=== PATIENT | male | born 1950 | race African-American/Black ===

== ENCOUNTER 2018-09-30 13:58 | Outpatient (CLI) | payer OTHER ==
[2018-09-30 15:25] LABS: Blood Urea Nitrogen 11 mg/dL (9-20)
--- NOTE | 2018-09-30 18:34 | Cat Scan Report ---
PROCEDURE: CT abdomen and pelvis with contrast. TECHNIQUE: Computerized axial tomography of the abdomen and pelvis was performed after the IV inject ion of iodinated nonionic contrast. CT DOSE LENGTH PRODUCT: 2413.57 mGycm HISTORY: Right lower quadrant abdominal pain. COMPARISONS: None. FINDINGS: The lung bases are clear. There are no pleural effusions. The heart size is normal. The liver, pancre as and spleen appear normal. The gallbladder is present. There is no biliary dilatation. The adrenal glands are not enlarged. Both kidneys appear normal in size and configuration. The abdominal aorta bee s a normal caliber. There is no retroperitoneal adenopathy. The unopacified gastrointestinal tract is unremarkable. A normal appendix is visible. There is a small umbilical hernia containing fat. The bl adder, seminal vesicles and prostate are unremarkable. There is a moderate sized left inguinal canal hernia containing fat. The regional skeleton appears intact. IMPRESSION: Small umbilical hernia and moderate sized left inguinal canal hernia, both containing fa t. No evidence of acute disease in the abdomen or pelvis. This document is electronically signed by Rohan Mirza MD., September 30 2018 06:32:24 PM ET
== END 2018-09-30 13:59 | disposition home or self-care (01) ==
LOC: CT 13:58
PROVIDERS: ATTEND Internal Medicine Gastroenterology
DX: K40.90 Unilateral inguinal hernia, without obstruction or gangrene, not specified as recurrent (principal); K42.9 Umbilical hernia without obstruction or gangrene
CPT/HCPCS: 36415; 74177; 82565; 84520; Q9967

== ENCOUNTER 2021-04-23 05:58 | Day surgery (SDC) | payer OTHER ==
[2021-04-17 10:09] LABS: Hemoglobin 14.6 gm/dl (11.8-15.2); Mean Corpuscular HGB Conc 33 % (32-34); Mean Corpuscular Volume 90 fl (84-94); Platelet Count 239 K/mm3 (140-440); Red Blood Count 4.89 M/mm3 (3.65-5.03); Red Cell Distribution Width 13.7 % (13.2-15.2)
[2021-04-17 10:21] LABS: BUN/Creatinine Ratio 14; Blood Urea Nitrogen 14 mg/dL (9-20); Calcium 9.2 mg/dL (8.4-10.2); Hemolysis Index 22
[2021-04-23] MEDS ORDERED: GABAPENTIN 300 MG CAP PO NR (06:00)
[2021-04-23] MEDS ORDERED: LACTATED RINGERS 1,000 ML IV SCH (06:00)
[2021-04-23] MEDS ORDERED: ACETAMINOPHEN 500 MG TAB PO SCH (06:00)
[2021-04-23] MEDS ORDERED: GABAPENTIN 100 MG CAP PO NR (06:30)
[2021-04-23] MEDS ORDERED: ceFAZolin/STERILE WATER 2 GM/20 ML SYRINGE IV NR (07:00)
[2021-04-23] MEDS ORDERED: BUPIVACAINE/PF (0.5%) 5 MG/1 ML 30 ML VIAL INFILTRATI ONE ×2 (07:08→08:48)
[2021-04-23] MEDS ORDERED: LIDOCAINE (1%) 10 MG/1 ML VIAL 20 ML MDV ONE (07:08)
[2021-04-23] MEDS ORDERED: LIDOCAINE PF 100 MG/5 ML (CARDIAC SYRINGE) IV ONE (07:19)
[2021-04-23] MEDS ORDERED: dexAMETHasone 20 MG/5 ML VIAL ONE (07:19)
[2021-04-23] MEDS ORDERED: fentaNYL 100 MCG/2 ML INJ ONE (07:19)
[2021-04-23] MEDS ORDERED: ROCURONIUM 50 MG/5 ML INJ IV ONE (07:19)
[2021-04-23] MEDS ORDERED: propofoL 200 MG/20 ML VIAL IV ONE (07:19)
[2021-04-23] MEDS ORDERED: ONDANSETRON 4 MG/2 ML INJ ONE (07:19)
[2021-04-23] MEDS ORDERED: oxyCODONE /ACETAMINOPHEN 5-325MG TAB PO PRN (07:28)
[2021-04-23] MEDS ORDERED: HYDROmorphone 1 MG/1 ML INJ IV PRN (07:28)
[2021-04-23] MEDS ORDERED: ONDANSETRON 4 MG/2 ML INJ IV PRN (07:28)
--- NOTE | 2021-04-23 07:28 | Anesthesia Consultation ---
Anesthesia Consult and Med Hx Date of service: 04/23/21 - Airway Anesthetic Teeth Evaluation: Good ROM Head & Neck: Adequate Mental/Hyoid Distance: Inadequate Mallampati Class: Class III Intubation Access Assessment: Possibly Difficult - Pulmonary Exam CTA: Yes (mild bibasilar crackles improved with deep inspiration) - Cardiac Exam Cardiac Exam: RRR - Pre-Operative Health Status ASA Pre-Surgery Classification: ASA3 Proposed Anesthetic Plan: General - Pulmonary Hx Smoking: No Hx Respiratory Symptoms: No Hx Sleep Apnea: No (SHUKRI PRE SCREEN HIGH RISK) - Cardiovascular System Hx Hypertension: Yes Hx Heart Attack/AMI: No Hx Percutaneous Transluminal Coronary Angioplasty (PTCA): No Hx Cardia Arrhythmia: No Hx Peripheral Vascular Disease: Yes (b/l LE) - Central Nervous System CVA: No - Endocrine Hx Renal Disease: No Hx Liver Disease: No Hx Insulin Dependent Diabetes: No Hx Non-Insulin Dependent Diabetes: No Hx Thyroid Disease: No - Other Systems Hx Obesity: No - Additional Comments Anesthesia Medical History Comments: No hx anesthetic complications.
--- NOTE | 2021-04-23 07:28 | Anesthesia Day of Surgery ---
Anesthesia Day of Surgery - Day of Surgery Patient Examined: Yes Patient H&P Reviewed: Yes Patient is NPO: Yes
[2021-04-23] MEDS ORDERED: PHENYLEPHRINE ONE (08:00)
[2021-04-23] MEDS ORDERED: KETOROLAC 30 MG/1 ML INJ ONE (08:00)
[2021-04-23] MEDS ORDERED: ePHEDrine SULFATE 50 MG/1 ML INJ ONE (08:08)
[2021-04-23] MEDS ORDERED: LIDOCAINE (1%) 10 MG/1 ML VIAL 20 ML MDV INFILTRATI ONE (08:49)
[2021-04-23] MEDS ORDERED: LACTATED RINGERS 1,000 ML ONE (10:00)
--- NOTE | 2021-04-23 10:00 | Short Stay Summary ---
Short Stay Documentation Date of service: 04/23/21 - History Principal diagnosis: umbilical hernia H&P: obtained from office - Allergies and Medications Current Medications: Allergies No Known Allergies Allergy (Verified 04/16/21 14:29) Home Medications Medication Instructions Recorded Confirmed Last Taken Type Furosemide [Lasix] 20 mg PO QDAY 04/16/21 04/16/21 Unknown History Tamsulosin [Flomax] 0.4 mg PO QDAY 04/16/21 04/16/21 Unknown History hydroCHLOROthiazide [Hctz] 12.5 mg PO QDAY 04/16/21 04/16/21 Unknown History Active Medications Acetaminophen (Acetaminophen 500 Mg Tab) 1,000 mg PO PREOP ROSAMARIA Last Admin: 04/23/21 06:45 Dose: 1,000 mg Documented by: Cefazolin Sodium (Cefazolin/Sterile Water 2 Gm/20 Ml Syringe) 2 gm IV PREOP NR Stop: 04/23/21 21:00 Hydromorphone HCl (Hydromorphone 1 Mg/1 Ml Inj) 0.5 mg IV Q10MIN PRN PRN Reason: Pain , Severe (7-10) Stop: 04/23/21 23:00 Lactated Ringer's (Lactated Ringers) 1,000 mls @ 100 mls/hr IV DIRECT ROSAMARIA Stop: 04/23/21 23:59 Last Admin: 04/23/21 06:45 Dose: 100 mls/hr Documented by: - Brief post op/procedure progress note Date of procedure: 04/23/21 Pre-op diagnosis: umbilical hernia Post-op diagnosis: same Procedure: robotic assisted umbilical hernia repair with mesh Anesthesia: GETA, local Findings: 2cm umbilical hernia repaired with 8 cm flat mesh Surgeon: CHASITY FERREIRA (assist: Pablo Duran YEAST FERMENTATION ATTENDANT) Estimated blood loss: minimal Pathology: none Condition: stable - Hospital course Hospital course: Pt observed in PACU and discharged to home in stable condition when criteria met - Disposition Condition at discharge: Good Disposition: 01 HOME / SELF CARE / HOMELESS Short Stay Discharge Plan Activity: other (no heavy lifting of greater than 10 lbs for 6 weeks) Diet: regular Wound: open to air, per your surgeon's advice (keep belly button dressing in place - may remove after 4 days. Pat incisions dry, do not scrub. Do not submerge in pool/hottub/bath until seen by surgeon) Follow up with: DELMA MORRIS MD [Primary Care Provider] - 7 Days CHASITY FERREIRA DO [Staff Physician] - 14 Days Prescriptions: Ibuprofen [Motrin 800 MG tab] 800 mg PO Q8HR PRN #30 tablet PRN Reason: Pain, Moderate (4-6) HYDROcodone/APAP 5-325 [Randle 5/325] 1 each PO Q6HR PRN #20 tablet PRN Reason: Pain , Severe (7-10)
--- NOTE | 2021-04-23 10:51 | Post Anesthesia Evaluation ---
- Post Anesthesia Evaluation Patient Participated: Yes Airway Patent: Yes Stable Respiratory Function: Yes Nausea/Vomiting: No Temp > 96.8F: Yes Pain Manageable: Yes Adequeate Hydration: Yes Anesthesia Complications: No
[2021-04-23] MEDS ORDERED: HYDROcodone/ACETAMINOPHEN 5-325 MG TAB ONE (11:26)
[2021-04-23] MEDS ORDERED: HYDROcodone/ACETAMINOPHEN 5-325 MG TAB PO PRN (13:42)
[2021-04-23 19:56] VITALS: BP 129/72
--- NOTE | 2021-04-24 11:40 | Operative Report ---
Operative Report Operative Report: Date of procedure: 04/23/21 9:56am Pre-op diagnosis: umbilical hernia Post-op diagnosis: same Procedure: robotic assisted umbilical hernia repair with mesh Anesthesia: SOBEIDA local Findings: 2cm umbilical hernia repaired with 8 cm flat mesh Surgeon: CHASITY FERREIRA (assist: ANDREA Starks) Estimated blood loss: minimal Pathology: none Condition: stable Hospital course: Pt observed in PACU and discharged to home in stable condition when criteria met HPI and indication: Patient is a 70-year-old male who presents to surgery clinic with complaints of an umbilical hernia. He was found to have an umbilical hernia, reducible on physical exam. It was recommended that the hernia be repaired. All risks, risks, alternatives to surgery were discussed with the patient and questions answered. Consent was obtained for robotic assisted umbilical hernia repair with mesh, possible open. Procedure in detail: Patient identified in the preoperative area and taken back to the operating room, placed on the operating room table in supine position. After anesthesia was induced the left arm was tucked and all bony prominences padded appropriately. An OG tube was placed by anesthesia. The abdomen was prepped and draped in usual sterile fashion a timeout performed. Local anesthetic was infiltrated into all skin incision sites. A chi incision was made in the left upper quadrant at Olmstead's point through which a Veress needle was inserted. The Veress needle positioning was confirmed using the saline drop test and the abdomen insufflated to 15 mmHg without incident. A 5 mm right upper quadrant incision was made through which an Optiview trocar was placed. The abdomen is inspected and there was no underlying injury to any of the abdominal structures. The Veress needle was identified and removed. The area of the umbilical hernia was easily identified. An additional 12 mm lateral right-sided port was placed under direct visualization as well as a right lower quadrant 8 mm robotic trocar. The patient was tilted to the left. The 5 mm right upper quadrant trocar was removed and replaced with an 8 mm robotic trocar under direct visualization. The robot was then docked. A fenestrated bipolar grasper was placed in arm #2 and a monopolar scissor in arm #1. The surgeon was then transferred to the console. I started by creating a preperitoneal flap approximately 5 cm from the area of the defect. The peritoneum was scored and a preperitoneal plane created using combination of blunt dissection and electrocautery. The hernia was encountered and hernia sac reduced. Great care was taken to avoid injury to the umbilical skin as the hernia sac was densely adhered. Once the entire hernia was reduced the preperitoneal dissection was carried out 5 cm to the opposite side and in order to ensure positioning of mesh. The hernia defect measured at approximately 1.5 x 2 cm. An 8 cm Bard flat mesh was chosen to repair the hernia defect. This was cut to size by the operations administrative assistant and placed into the abdomen along with suture material. The hernia defect was first closed using a running 0 V-Loc. The mesh was then positioned over the hernia and centered. There was adequate coverage of the mesh lay flat in the preperitoneal space. This was sutured in all 4 quadrants using interrupted 2-0 Vicryl stitches. The pocket was checked for hemostasis which is very carefully ensured. The peritoneum was then reapproximated using a running 3-0 VLoc stitch. A defect in the peritoneum was repaired using a 3-0 V-Loc running stitch. The entirety of the mesh was covered with peritoneum. The robot was then undocked and the surgeon scrubbed back in. The remainder of the procedure was performed laparoscopically. All sharp and suture material was removed from the abdomen and accounted for. The right lower quadrant 8 mm port was removed and the fascia approximated using a interrupted 0 Vicryl stitch with a Lj Hensley device. The same was done for the 12 mm port fascia. The right upper quadrant port was removed and the abdomen desufflated. The skin incisions were once again infiltrated with local anesthetic. The skin was approximated using 4-0 Monocryl subcuticular stitches and skin glue. The u mbilicus was then examined and there was some sloughing of the superficial skin but no full-thickness injury seen. Xeroform was applied to the area of sloughing skin and a balled up 4 x 4 gauze was placed into the umbilicus and secured with Tegaderm. At the end of the case, all sponge, instrument, sharp counts were correct x2. The patient was awoken from anesthesia extubated and taken to PACU in stable condition. An abdominal binder was applied. Patient's family was updated
== END 2021-04-23 05:59 | disposition home or self-care (01) ==
LOC: OR 05:58
PROVIDERS: ATTEND Surgery
DX: K42.9 Umbilical hernia without obstruction or gangrene (principal); I10 Essential (primary) hypertension; K21.9 Gastro-esophageal reflux disease without esophagitis; N40.0 Benign prostatic hyperplasia without lower urinary tract symptoms; Z79.899 Other long term (current) drug therapy; Z98.890 Other specified postprocedural states; Z20.822 Contact with and (suspected) exposure to COVID-19
CPT/HCPCS: 36415; 49652; 80048; 85027; C1781; J0690; J1100; J1885; J2001; J2370; J2405; J2704; J3010; J7120; S2900; U0003

== ENCOUNTER 2021-06-10 13:19 | Outpatient (CLI) | payer OTHER ==
[2021-06-10] MEDS ORDERED: LIDOCAINE (4%) 40 MG/ML TOPICAL SOLN 50 ML BOTTLE TP ONE (15:30)
== END 2021-06-10 13:20 | disposition home or self-care (01) ==
LOC: WOUND 13:19
PROVIDERS: ATTEND Surgery
DX: T81.89XA Other complications of procedures, not elsewhere classified, initial encounter (principal); S31.105A Unspecified open wound of abdominal wall, periumbilic region without penetration into peritoneal cavity, initial encounter; I10 Essential (primary) hypertension; N40.0 Benign prostatic hyperplasia without lower urinary tract symptoms; K21.9 Gastro-esophageal reflux disease without esophagitis; G47.00 Insomnia, unspecified; Z90.79 Acquired absence of other genital organ(s); Y83.8 Other surgical procedures as the cause of abnormal reaction of the patient, or of later complication, without mention of misadventure at the time of the procedure; X58.XXXA Exposure to other specified factors, initial encounter; Y93.89 Activity, other specified; Y92.238 Other place in hospital as the place of occurrence of the external cause; Y99.8 Other external cause status
CPT/HCPCS: 99215; G0463